=== PATIENT | female | born 1990 | race Two or more races ===

== ENCOUNTER 2016-11-12 13:13 | Emergency (ER) | payer MEDICAID ==
--- NOTE | 2016-11-12 13:26 | ED Physician Chart ---
Chief Complaint/HPI - Patient Information Date Seen:: 11/12/16 Time Seen:: 13:15 Chief Complaint:: cough History of Present Illness:: 26-year-old female history of asthma, complains of acute, worsening, constant, worse at night, nonproductive, cough 3 days. Has associated sore throat. Has been using her albuterol inhaler which seems to somewhat improve the cough for a short time after using it. Historian:: Patient Review:: Nurse's Note Reviewed Review of Systems - Review of Systems Other: Complete system review otherwise unremarkable except as noted in history of present illness. Past Medical History - Past Medical History Past Medical History: Asthma/COPD Family History: None Social History: Non Smoker, No Alcohol, No Drug Use, Employed Surgical History: None Psychiatricy History: None Medication: None Family Medical History - Family Member Mother Living Status: Still Living Hx Family Diabetes: Yes Physical Exam - Physical Examination Other:: INITIAL VITAL SIGNS: Reviewed by me GENERAL: Alert and interactive. No acute distress HEAD: Head is normocephalic and atraumatic EYES: EOMI. PERRL. No scleral icterus. No conjunctival injection ENT: Moist mucous membranes. NECK: Supple. No masses. Full range of motion RESPIRATORY: No tachypnea. Prolonged expiratory phase bilaterally. No wheezing , rales, or rhonchi CV: Regular rate and rhythm. No murmurs, rubs, or gallops ABDOMEN: Soft, non-distended, non-tender. No guarding. No rebound. No masses. EXTREMITIES: No deformity. No cyanosis. No edema. SKIN: Warm and dry. No obvious rashes. NEUROLOGIC: Alert and oriented. Face is symmetric. Speech is normal. Moves all extremities equally. Motor and sensory distally intact. ED Septic Shock - . Is Septic Shock (SBP<90, OR Lactate>4 mmol\L) present?: No Reassessment (Disposition) - Reassessment Reassessment:: Has underlying asthma. Has worsening bronchitis. Given the underlying asthma we'll prescribe azithromycin. Also provided prescription for prednisone daily 5 days. Received Decadron here in the ER. Symptoms did improve. The patient was re-evaluated after ED treatment and stabilizing measures, and symptoms have improved. On re-examination, patient resting in no distress, stable vital signs, reports feeling better and safe for discharge with outpatient follow up with PMD in 1-2 days. Patient given return precautions. Reassessment Condition:: Improved - Aftercare/Follow up Instructions Aftercare/Follow-Up Instructions:: Counseled pt regarding lab results/diagnosis & need follow up, Refer to Discharge Instructions Medication Prescribed:: Azithromycin Ibuprofen Prednisone - Patient Disposition Discharge/Transfer:: Home Time:: 13:37 Condition at Disposition:: Improved ED Discharge Plan - Patient Disposition Admit/Discharge/Transfer: PT DISCHARGED HOME Condition at Disposition: Improved Instructions: Bronchitis, [id number]
== END 2016-11-12 13:52 | disposition home or self-care (01) ==
LOC: ER 13:13
DX: J45.909 Unspecified asthma, uncomplicated (principal); J44.9 Chronic obstructive pulmonary disease, unspecified
CPT/HCPCS: 99283; J8540; Z7502; Z7610